=== PATIENT | male | born 1955 | race African-American/Black ===

== ENCOUNTER 2021-02-22 10:30 | Outpatient (REF) | payer MEDICARE, MEDICAID, SELFPAY | END 2021-02-22 10:31 | disposition home or self-care (01) | LOC: HO.WFDLDS 10:30 | PROVIDERS: Visit Provider Internal Medicine | DX: Z20.822 Contact with and (suspected) exposure to COVID-19 (principal) | CPT/HCPCS: C9803; U0003; U0005 ==

== ENCOUNTER 2021-05-25 09:11 | Outpatient (REF) | payer MEDICARE, SELFPAY ==
[2021-05-25 10:10] LABS: COVID-19 Test Negative (Negative)
== END 2021-05-25 09:12 | disposition home or self-care (01) ==
LOC: HO.LAB 09:11
PROVIDERS: Visit Provider Internal Medicine
DX: Z20.822 Contact with and (suspected) exposure to COVID-19 (principal)
CPT/HCPCS: 36415; 87635; C9803